=== PATIENT | male | born 2000 | race Caucasian/White ===

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

== ENCOUNTER 2018-11-26 20:00 | Emergency (ER) | payer BC ==
--- NOTE | 2018-11-26 21:21 | ED ---
Head Injury - HPI Summary HPI Summary: Pt is a 18 y/o M presenting to the ED with a chief complaint of a head injury yesterday evening. He states he was tackled in rugby and landed on the L side of his head, and someone landed on the other side of his head. He reports fatigue, irritability, photophobia, and headache on the L side of his frontal head. He notes hx of concussions. He has been treating the pain with Tylenol. He denies N/V, LOC, and one-sided weakness. - History Of Current Complaint Chief Complaint: EDHeadInjury Stated Complaint: CONCUSSION PER PT Time Seen by Provider: 11/26/18 21:03 Hx Obtained From: Patient Mechanism Of Injury: Other - tackled during rugby Onset/Duration: Started Hours Ago, Still Present Onset of Pain: Hours, Prior to Arrival Severity Currently: Mild Severity Initially: Mild Pain Intensity: 3 Pain Scale Used: 0-10 Numeric Location of Head Injury: Frontal - L-side Associated Signs And Symptoms: Headache, Other: - fatigue - Allergies/Home Medications Allergies/Adverse Reactions: Allergies Allergy/AdvReac Type Severity Reaction Status Date / Time No Known Allergies Allergy Verified 10/16/17 23:07 PMH/Surg Hx/FS Hx/Imm Hx Previously Healthy: Yes Endocrine/Hematology History: Denies: Hx Anticoagulant Therapy Cardiovascular History: Denies: Hx Auto Implanted Cardiovert Defib, Hx Cardiac Arrest, Hx Cardiomegaly, Hx Congenital Heart Disease, Hx Congestive Heart Failure, Hx Deep Vein Thrombosis, Hx Embolism, Hx Hypercholesterolemia, Hx Hypotension, Hx Hypertension, Hx Pacemaker/ICD, Hx Peripheral Vascular Disease, Hx Rheumatic Fever, Hx Syncope Respiratory History: Denies: Hx Asthma GI History: Denies: Hx Gastrointestinal Bleed Neurological History: Reports: Other Neuro Impairments/Disorders - hx concussions Infectious Disease History: No Infectious Disease History: Denies: Traveled Outside the [place] in Last 30 Days - Family History Known Family History: Negative: Cardiac Disease, Seizure Disorder - Social History Alcohol Use: Weekly Alcohol Amount: weekends Hx Substance Use: Yes Substance Use Type: Reports: Marijuana Substance Use Comment - Amount & Last Used: occasional Hx Tobacco Use: No Smoking Status (MU): Never Smoked Tobacco Review of Systems Positive: Fatigue, Other - irritability Negative: Vomiting, Nausea Positive: Headache. Negative: Syncope All Other Systems Reviewed And Are Negative: Yes Physical Exam - Summary Physical Exam Summary: Constitutional: Well-developed, Well-nourished, Alert. (-) Distressed Skin: Warm, Dry HENT: Normocephalic; Atraumatic Eyes: Conjunctiva normal Neck: Musculoskeletal ROM normal neck. (-) JVD, (-) Stridor, (-) Tracheal deviation Cardio: Rhythm regular, rate normal, Heart sounds normal; Intact distal pulses. Radial pulses are 2+ and symmetric. (-) Murmur Pulmonary/Chest wall: Effort normal. (-) Respiratory distress, (-) Wheezes, (-) Rales Abd: Soft. (-) Tenderness, (-) Distension, (-) Guarding, (-) Rebound Musculoskeletal: (-) Edema Lymph: (-) Cervical adenopathy Neuro: Alert, Oriented x3, Strength normal, Cranial nerves II-XII are grossly intact. (-) Dysmetria, (-) Nystagmus, (-) Ataxia by finger to nose testing, (-) Sensory deficit. Psych: Mood and affect Normal Triage Information Reviewed: Yes Vital Signs On Initial Exam: Initial Vitals Temp Pulse Resp BP Pulse Ox 97.9 F 50 18 156/65 98 11/26/18 20:02 11/26/18 20:02 11/26/18 20:02 11/26/18 20:02 11/26/18 20:02 Vital Signs Reviewed: Yes Procedures - Sedation Patient Received Moderate/Deep Sedation with Procedure: No Diagnostics - Vital Signs Vital Signs Temp Pulse Resp BP Pulse Ox 11/26/18 20:02 97.9 F 50 18 156/65 98 - Laboratory Lab Statement: Any lab studies that have been ordered have been reviewed, and results considered in the medical decision making process. Head Injury Course/Dx Course Of Treatment: Patient is here with cushion symptoms. Patient has a normal neurologic exam and does not need a CT head per clinical decision making rules. Patient was educated on concussion management and given a school note to take off tomorrow. Patient was told he cannot play athletics until cleared by his primary care physician. - Diagnoses Provider Diagnoses: Head injury, Concussion Discharge ED - Sign-Out/Discharge Documenting (check all that apply): Patient Departure - Discharge Plan Condition: Stable Disposition: HOME Patient Education Materials: Concussion (ED), Head Injury (ED), Sports Concussion (ED) Forms: *School Release Referrals: [facility] [Outside] Additional Instructions: Please follow up with [facility] within the next 1-3 days. Try to turn your brain off entirely for at least the next 24 hours. This means do not look at screens, including your phone, laptop, or television, and do not read. Do not go to class tomorrow, and do not play rugby until cleared by [facility]. This will help prevent any long-term effects. Take either 600mg Ibuprofen every 6 hours or 650mg Tylenol every 6 hours for your pain. Return to the emergency department with any one-sided weakness, uncontrollable vomiting, visual changes, changes in your speech, or if you begin acting differently. - Billing Disposition and Condition Condition: STABLE Disposition: Home - Attestation Statements Document Initiated by Iliana: Yes Documenting Scribe: Radha Jauregui Provider For Whom Iliana is Documenting (Include Credential): Jeffery Blanco MD. Scribe Attestation: Radha Ledesma, scribed for Jeffery Blanco MD. on 11/26/18 at 2132. Scribe Documentation Reviewed: Yes Provider Attestation: The documentation as recorded by the [email or web address] accurately reflects the service I personally performed and the decisions made by me, Jeffery Blanco MD. Status of Scribe Document: Viewed
[2018-11-26] MEDS ORDERED: Ibuprofen TAB* 600 MG PO ONE (21:26)
[2018-11-26] MEDS ORDERED: Acetaminophen TAB* 325 MG PO ONE (21:26)
[2018-11-26 21:44] VITALS: BP 145/87
== END 2018-11-26 21:42 | disposition home or self-care (01) ==
LOC: ED 20:00
DX: S06.0X9A Concussion with loss of consciousness of unspecified duration, initial encounter (principal); W03.XXXA Other fall on same level due to collision with another person, initial encounter; Y93.63 Activity, rugby; Y92.9 Unspecified place or not applicable
CPT/HCPCS: 99282; A9270-GY